=== PATIENT | female | born 1990 | race Two or more races ===

== ENCOUNTER 2025-01-31 16:07 | Emergency (ER) | payer OTHER ==
[~2025-01-31] VITALS: Ht 149.9 cm; Wt 77.1 kg
[2025-01-31] MEDS ORDERED: CLONAZEPAM0.5 M1 (16:50)
[2025-01-31] MEDS ORDERED: TOPROL XL25 M1 (16:50)
[2025-01-31 17:44] LABS: BASO % 0.2 % (0.1-1.2); EOS # 0.02 (0.04-0.54); EOS % 0.1 % (0.7-7.0); LYMPH # 2.20 (1.18-3.74); LYMPH % 16.3 % (19.3-53.1); MEAN PLATELET VOLUME 9.00 fl (9.4-12.4); MONO # 0.83 (0.24-0.82); MONO % 6.1 % (4.7-12.5); NEUT # 10.38 (1.56-6.13); NEUT % 76.9 % (34.0-71.1); RED CELL DISTRIBUTION WIDTH 13.2 % (11.6-14.4)
[2025-01-31 18:06] LABS: INR 1.02
[2025-01-31 18:30] LABS: BUN CREA RATIO 24.0 (7.0-25.0); CREATININE SERUM 0.67 mg/dL (0.55-1.02); GFR 100.75; GLUCOSE FASTING 99.0 mg/dL (65-100); OSMOLALITY SERUM 284.0 MOSM/KG (275-295)
== END 2025-01-31 20:02 | disposition home or self-care (01) ==
LOC: ER 16:07
PROVIDERS: General Practice
DX: F41.0 Panic disorder [episodic paroxysmal anxiety] (principal)